=== PATIENT | male | born 1975 | race Caucasian/White ===

== ENCOUNTER 2020-11-25 06:42 | Day surgery (SDC) | payer OTHER ==
[2020-11-22 14:28] VITALS: BMI 23.0
[2020-11-25 07:51] VITALS: BP 128/83; TEMP 98.2
== END 2020-11-25 10:05 | disposition home or self-care (01) ==
LOC: RAD 06:42
PROVIDERS: ATTEND Neurological Surgery
PROC: B02B1ZZ Computerized Tomography (CT Scan) of Spinal Cord using Low Osmolar Contrast (ICD-10-PCS; principal; 2020-11-25)
DX: M47.16 Other spondylosis with myelopathy, lumbar region (principal); M47.26 Other spondylosis with radiculopathy, lumbar region; M51.34 Other intervertebral disc degeneration, thoracic region; M51.24 Other intervertebral disc displacement, thoracic region; M48.04 Spinal stenosis, thoracic region; M43.16 Spondylolisthesis, lumbar region; M48.07 Spinal stenosis, lumbosacral region; M47.814 Spondylosis without myelopathy or radiculopathy, thoracic region; G96.198 Other disorders of meninges, not elsewhere classified; G03.1 Chronic meningitis
CPT/HCPCS: 62305; 72129; 72132